=== PATIENT | male | born 1985 | race African-American/Black ===

== ENCOUNTER 2018-06-26 16:37 | Emergency (ER) | payer OTHER ==
[~2018-06-26] VITALS: Ht 185.4 cm; Wt 93.0 kg
[2018-06-26] MEDS ORDERED: NABUMETONE 750750 M1 PO (18:34)
[2018-06-26] MEDS ORDERED: ONDANSETRON HCL4 M2 PO (18:34)
[2018-06-26] MEDS ORDERED: ROBAXIN 750 MG750 M1 PO (18:34)
[2018-06-26 19:03] VITALS: BP 123/81
== END 2018-06-26 19:03 | disposition home or self-care (01) ==
LOC: M.ERS 16:37
DX: S06.0X0A Concussion without loss of consciousness, initial encounter (principal); V49.49XA Driver injured in collision with other motor vehicles in traffic accident, initial encounter; Y93.89 Activity, other specified; Y92.410 Unspecified street and highway as the place of occurrence of the external cause; Y99.8 Other external cause status